=== PATIENT | male | born 1980 | race Caucasian/White ===

== ENCOUNTER → 2022-01-09 15:31 | Outpatient (CLI) | payer SELFPAY ==
[2022-01-09 17:30] LABS: Urine N gonorrhoeae NOT DETECTED
[2022-01-09 17:37] LABS: Urine Chlamydia NOT DETECTED
== END ==
PROVIDERS: Visit Provider Student in an Organized Health Care Education/Training Program
DX: Z11.3 Encounter for screening for infections with a predominantly sexual mode of transmission (principal); R30.0 Dysuria
CPT/HCPCS: 87086; 87491; 87591